=== PATIENT | female | born 1970 | race Caucasian/White ===

== ENCOUNTER 2017-08-10 03:41 | Inpatient (IN) ==
[2017-08-10] MEDS ORDERED: HYDROmorphone 2 MG/1 ML VIAL IV STA ×2 (04:16→05:50)
[2017-08-10] MEDS ORDERED: ONDANSETRON 4 MG/2 ML VIAL IV STA (04:16)
[2017-08-10] MEDS ORDERED: MEPERIDINE 50 MG/1 ML VIAL ONE (04:38)
[2017-08-10] MEDS ORDERED: MIDAZOLAM 10 MG/2 ML VIAL ONE (04:38)
[2017-08-10] MEDS ORDERED: ONDANSETRON 4 MG/2 ML VIAL ONE ×3 (04:49→11:54)
[2017-08-10] MEDS ORDERED: MEPERIDINE 50 MG/1 ML VIAL IV STA (05:04)
[2017-08-10] MEDS ORDERED: MIDAZOLAM 2 MG/2 ML VIAL IV STA (05:04)
[2017-08-10] MEDS ORDERED: MAGNESIUM HYDROXIDE SUSP 30 ML UDCUP PO PRN (05:37)
[2017-08-10] MEDS ORDERED: ONDANSETRON 4 MG/2 ML VIAL IV PRN ×2 (05:37→11:43)
[2017-08-10] MEDS ORDERED: HYDROmorphone 2 MG/1 ML VIAL ONE ×2 (05:52→11:41)
[2017-08-10] MEDS ORDERED: tiZANidine 4 MG TABLET PO PRN (07:16)
[2017-08-10 07:26] LABS: PT Patient Result 10.6 SECS
[2017-08-10 07:27] LABS: Basophils # 0.1 10*3/uL (0.0-0.2); Basophils % 0.6 % (0.0-0.8); Eosinophils # 0.1 10*3/uL (0.0-0.87); Eosinophils % 0.8 % (0.00-10.9); Hematocrit 31.9 VOL% (35.7-47.0); Hemoglobin 9.6 GM/DL (12.0-16.0); Immature Granulocytes % 0.4 %; Immature Granulocytes Absolute 0.04 #; Lymphocytes # 3.6 10*3/uL (1.4-4.0); Lymphocytes % 36.2 % (21.3-54.2); Mean Corpuscular HGB Conc 30.1 GM/DL (32-36); Mean Corpuscular Hemoglobin 25 PG (27-34); Mean Corpuscular Volume 83.7 FL (87-102); Mean Platelet Volume 11.7 FL (9.6-12.0); Monocytes # 0.7 10*3/uL (0.11-0.8); Monocytes % 7.4 % (1.7-12.7); Neutrophils # 5.3 10*3/uL (1.4-7.4); Neutrophils % 54.6 % (38.7-73.9); Platelet Count 321 T/CUMM (130-400); Red Blood Count 3.81 MC/CUMM (3.8-5.5); Red Cell Distribution Width 15.2 % (9.3-17.3); White Blood Count 9.8 T/CUMM (4-12)
[2017-08-10 07:47] LABS: Albumin 3.2 G/DL (3.4-5.0); Bilirubin,Total 0.5 MG/DL (0.2-1.0); Calcium 8.5 MG/DL (8.5-10.1); Osmolality,Calculated 281.3 MOS/KG (273-304); Potassium 3.9 MMOL/L (3.5-5.1); Total Protein 6.6 G/DL (6.4-8.3)
[2017-08-10] MEDS ORDERED: DIAZEPAM 5 MG TABLET PO ONE (08:15)
[2017-08-10] MEDS ORDERED: ceFAZolin 2,000 MG in PREMIX 1 EACH IV ONE (08:28)
[2017-08-10 08:39] LABS: Apearance,Urine CLEAR (Clear); Bacteria,Urine Occasional /HPF (Few); Bilirubin,Urine Negative (Negative); Blood, Urine Large mg/dL (Negative); Glucose,Urine (UA) Negative (Negative); Hyaline Casts,Urine 2 /LPF (0-3); Ketones,Urine Negative (Negative); Mucus,Urine Occasional /LPF (Occasional); Nitrite,Urine Negative (Negative); Protein,Urine Negative; RBC,Urine 70 /HPF (0-4); Squamous Epithelial Cell,Urine Occasional /HPF (0-10); Urine Color Yellow (Yellow); Urine Urobilinogen < 2.0 EU/DL (0.2-1.0); WBC,Urine 3 /HPF (0-6)
[2017-08-10] MEDS ORDERED: BACITRACIN OINT 0.9 GM PACK TOP ONE ×2 (08:52→09:48)
[2017-08-10] MEDS: CLORAZEPATE 3.75 MG TABLET PO SCH ×3 (10:57→20:37)
[2017-08-10] MEDS: METOPROLOL TARTRATE 25 MG TABLET PO SCH ×2 (10:57→20:39)
[2017-08-10] MEDS: lamoTRIgine 25 MG TABLET PO SCH ×2 (10:57→20:38)
[2017-08-10] MEDS: PREGABALIN 75 MG CAPSULE PO SCH ×3 (10:57→20:38)
[2017-08-10] MEDS: PROPRANOLOL 20 MG TABLET PO SCH ×2 (10:57→20:39)
[2017-08-10] MEDS: hydroCHLOROthiazide 12.5 MG CAPSULE PO SCH (10:58)
[2017-08-10] MEDS: DEXTROSE 5% NACL 0.45% 1,000 ML IV SCH ×2 (10:58→17:28)
[2017-08-10] MEDS ORDERED: ROPIVACAINE 0.5% 30 ML VIAL ONE (11:16)
[2017-08-10] MEDS: HYDROmorphone 2 MG/1 ML VIAL IV PRN ×6 (11:43→20:27)
[2017-08-10] MEDS ORDERED: SEVOFLURANE 1 UNIT/15 MINUTE INH ONE (11:53)
[2017-08-10] MEDS ORDERED: MIDAZOLAM 2 MG/2 ML VIAL ONE (11:53)
[2017-08-10] MEDS ORDERED: PROPOFOL 200 MG/20 ML VIAL IV ONE (11:53)
[2017-08-10] MEDS ORDERED: METOPROLOL TARTRATE 5 MG/5 ML VIAL IV ONE (11:54)
[2017-08-10] MEDS ORDERED: fentaNYL 100 MCG/2 ML VIAL ONE (11:54)
[2017-08-10] MEDS: KETOROLAC 30 MG/1 ML VIAL IV SCH ×2 (14:01→17:29)
[2017-08-10] MEDS: ceFAZolin 2,000 MG in PREMIX 1 EACH IV SCH (17:36)
[2017-08-10] MEDS ORDERED: AMITRIPTYLINE 50 MG TABLET PO SCH (21:00)
[2017-08-11] MEDS: KETOROLAC 30 MG/1 ML VIAL IV SCH ×2 (00:24→05:20)
[2017-08-11] MEDS: ceFAZolin 2,000 MG in PREMIX 1 EACH IV SCH (01:12)
[2017-08-11] MEDS: HYDROmorphone 2 MG/1 ML VIAL IV PRN (06:27)
[2017-08-11] MEDS: CLORAZEPATE 3.75 MG TABLET PO SCH (09:22)
[2017-08-11] MEDS: PROPRANOLOL 20 MG TABLET PO SCH (09:23)
[2017-08-11] MEDS: PREGABALIN 75 MG CAPSULE PO SCH (09:23)
[2017-08-11] MEDS: hydroCHLOROthiazide 12.5 MG CAPSULE PO SCH (09:24)
[2017-08-11] MEDS: METOPROLOL TARTRATE 25 MG TABLET PO SCH (09:24)
[2017-08-11] MEDS: lamoTRIgine 25 MG TABLET PO SCH (09:25)
[2017-08-11 11:30] VITALS: BP 143/79
== END 2017-08-11 11:30 | disposition home or self-care (01) | DRG 494 ==
LOC: EDBD → EDUNIT# → N.ED 03:41 → N.EDINP 05:37 → N.3E 06:00
PROVIDERS: ADMIT Orthopaedic Surgery; ATTEND Orthopaedic Surgery